=== PATIENT | male | born 1980 | race African-American/Black ===

== ENCOUNTER 2018-01-08 20:25 | Emergency (ER) | payer OTHER ==
[~2018-01-08] VITALS: Ht 188 cm; Wt 104.5 kg
[2018-01-08 23:05] LABS: BASOPHILS % 0.4 % (0.0-2.0); EOSINOPHILS % 1.1 % (0.0-5.0); HEMATOCRIT. 42.4 % (42.0-52.0); HEMOGLOBIN. 14.7 g/dL (14.0-18.0); MEAN CORPUSCULAR HEMOGLOBIN 31.3 pg (28.0-32.0); MEAN CORPUSCULAR VOLUME 90.4 fL (80.0-94.0); MEAN PLATELET VOLUME 8.1 fl (7.4-10.4); MONOCYTES % 8.1 % (2.0-8.0); NEUTROPHILS % 71.4 % (40.0-76.0); PLATELET 219 x1000/uL (130-400); RED BLOOD CELL COUNT 4.69 mill/uL (4.7-6.1); RED CELL DISTRIBUTION WIDTH 12.4 % (11.6-14.6)
[2018-01-08 23:13] LABS: CHLORIDE 106 mEq/L (98-107); INR 1.1; PROTHROMBIN TIME 11.1 sec (9.4-11.6)
[2018-01-08 23:19] LABS: TROPONIN I < 0.02 ng/mL (0.00-0.04)
[2018-01-08 23:48] VITALS: BP 120/75
== END 2018-01-08 23:52 | disposition home or self-care (01) ==
LOC: ER 21:07
DX: R00.2 Palpitations (principal); R42 Dizziness and giddiness
CPT/HCPCS: 36415; 71045; 80053; 83880; 84484; 85025; 85610; 93005; 99285; Z7610